=== PATIENT | male | born 1975 | race Caucasian/White ===

== ENCOUNTER 2019-12-18 05:51 | Outpatient (CLI) | payer OTHER ==
[2019-12-18 13:32] LABS: Hemoglobin 13.3 g/dL (14.0-18.0); Mean Corpuscular HGB CONC 31.5 g/dL (32.0-36.0); Mean Corpuscular Hemoglobin 28.4 pg (27.0-31.0); Mean Corpuscular Volume 90.1 fL (78.0-98.0); Mean Platelet Volume 10.3 fL (7.4-10.4); Platelet Count 235 thou/uL (130-400); RBC Distribution Width 11.8 % (11.5-14.5); White Blood Cell (WBC) Count 7.5 thou/uL (4.8-10.8)
[2019-12-18 13:53] LABS: Anion Gap 15 mmol/L (10-20); BUN (Urea Nitrogen) 24 mg/dL (8.9-20.6); Calc. Creatinine Clearance 0 mL/min (70-130); Calcium 9.3 mg/dL (7.8-10.44); Carbon Dioxide 23 mmol/L (22-29); Chloride 105 mmol/L (98-107); Estimated GFR-MDRD 79; Glucose 148 mg/dL (70-105); Potassium 5.2 mmol/L (3.5-5.1); Sodium 138 mmol/L (136-145)
[2019-12-18 17:22] LABS: SARS-CoV-2 MS2 Positive; SARS-CoV-2 N Gene Negative; SARS-CoV-2 S Gene Negative; SARS-CoV-2 orf1ab Negative
--- NOTE | 2019-12-21 16:17 | EKG ---
Test Reason : Blood Pressure : / mmHG Vent. Rate : 077 BPM Atrial Rate : 077 BPM P-R Int : 138 ms QRS Dur : 088 ms QT Int : 358 ms P-R-T Axes : 042 083 058 degrees QTc Int : 405 ms Normal sinus rhythm Normal ECG No previous ECGs available Confirmed by CARLOS ASIF (2) on 12/21/2019 4:16:29 PM Referred By: TED Confirmed By:CARLOS ASIF
== END 2019-12-18 05:52 | disposition home or self-care (01) ==
LOC: LABBT 05:51
PROVIDERS: ATTEND Neurological Surgery
DX: Z01.818 Encounter for other preprocedural examination (principal); Z11.59 Encounter for screening for other viral diseases; M54.12 Radiculopathy, cervical region
CPT/HCPCS: 80048; 85027; 87635; 93005; 93010; U0003

== ENCOUNTER 2019-12-22 06:56 | Day surgery (SDC) | payer OTHER ==
[2019-12-18 12:11] VITALS: BMI 22.1
[2019-12-22] MEDS ORDERED: Fentanyl 100 MCG/2 ML VIAL ONE ×5 (09:06→11:30)
[2019-12-22] MEDS ORDERED: Midazolam HCl 2 mg/2 ml Vial ONE (09:20)
[2019-12-22] MEDS ORDERED: SUGAMMADEX SODIUM 200 MG/2 ML VIAL ONE (10:13)
--- NOTE | 2019-12-22 11:13 | OP ---
DATE OF PROCEDURE: 12/22/2019 TITLE OFFICER: Sana Adams PA-C PROCEDURES PERFORMED: Anterior cervical diskectomy C5-C6 and C6-C7, interbody arthrodesis, intervertebral biomechanical device, local morselized autograft, demineralized bone matrix, and anterior titanium instrumentation C5-C6 and C6-C7. DESCRIPTION OF PROCEDURE: The patient was brought to the operating room and intubated. He was positioned supine with head in modest extension on a gel-filled donut. An incision was made in the right precervical area and dissected medial to the sternocleidomastoid muscle, identified the anterior cervical spine and level was confirmed by x-ray. We placed distraction from across C5 through C7 and using operative microscope and microdissection techniques, completely removed the intervertebral disks, decompressed the neural elements from foramen to foramen with particular attention in the left. After complete decompression was secured, the bony endplates were decorticated for the purpose of arthrodesis and appropriate-sized intervertebral biomechanical PEEK device was brought into the field. It was filled with demineralized bone matrix and local morselized autograft, and tapped in place securely at C5-C6 and C6-C7. Next, an anterior plate was brought into the field and secured to C5, C6, and C7 using two 14 mm screws at each level. The wound was then extensively irrigated. MAC hemostasis was secured. The wound was closed in anatomic layers. Job ID: [id number]
[2019-12-22] MEDS ORDERED: Dexamethasone 20 MG/5 ML VIAL ONE (11:21)
[2019-12-22] MEDS ORDERED: Ondansetron PF 4 MG/2 ML Vial ONE (11:21)
[2019-12-22] MEDS ORDERED: PROPOFOL 200 MG/20 ML VIAL ONE (11:21)
[2019-12-22] MEDS ORDERED: Lidocaine 1% PF 5 ML VIAL ONE (11:21)
[2019-12-22] MEDS ORDERED: EPHEDRINE 25 MG/5 ML SYRINGE ONE (11:21)
[2019-12-22] MEDS ORDERED: Rocuronium Bromide 10 MG/ML (10ML VIAL) ONE (11:21)
[2019-12-22] MEDS ORDERED: HYDROcodone/Acetaminophen 5/325 mg Tablet ONE (12:14)
== END 2019-12-22 13:06 | disposition home or self-care (01) ==
LOC: SDC 06:56
PROVIDERS: ATTEND Neurological Surgery
PROC: 0RG20A0 Fusion of 2 or more Cervical Vertebral Joints with Interbody Fusion Device, Anterior Approach, Anterior Column, Open Approach (ICD-10-PCS; principal; 2019-12-22)
PROC: 0RG2070 Fusion of 2 or more Cervical Vertebral Joints with Autologous Tissue Substitute, Anterior Approach, Anterior Column, Open Approach (ICD-10-PCS; principal; 2019-12-22)
PROC: 0RG20J1 Fusion of 2 or more Cervical Vertebral Joints with Synthetic Substitute, Posterior Approach, Posterior Column, Open Approach (ICD-10-PCS; principal; 2019-12-22)
PROC: 0RT30ZZ Resection of Cervical Vertebral Disc, Open Approach (ICD-10-PCS; principal; 2019-12-22)
DX: M54.12 Radiculopathy, cervical region (principal); Z79.84 Long term (current) use of oral hypoglycemic drugs; Z79.899 Other long term (current) drug therapy
CPT/HCPCS: 76000; C1713; C1776; J0690; J1100; J2001; J2250; J2405; J2704; J3010; J3370